=== PATIENT | male | born 1950 | race Caucasian/White ===

== ENCOUNTER 2016-08-25 16:42 | Outpatient (CLI) | payer BC ==
[~2016-08-25] VITALS: Ht 180.3 cm; Wt 79.5 kg
[~2016-08-25 16:42] MED LIST: ASPIRIN 32325 MG/TAB PO; CRESTOR 10MG10 MG PO
[2016-08-25 17:10] VITALS: BP 154/74; PULSE 59; TEMP 98
[2016-08-26] MEDS ORDERED: TYLENOL 325MG325 MG PO (10:34)
[2016-08-26] MEDS ORDERED: THE MEDICINE S200 M2 PO (10:34)
[2016-08-26] MEDS ORDERED: CENTRUM MEN'S PO (10:35)
[2016-08-26] MEDS ORDERED: SEA OMEGA 30 121 SGL PO (10:35)
[2016-08-26] MEDS ORDERED: ZOSYN 4 GM-0.51 PD1 IV (10:36)
[2016-08-26] MEDS ORDERED: VITAMIN B COMPL1 SGL PO (10:37)
[2016-08-26] MEDS ORDERED: SENOKOT S 50 MG1 TAB PO (10:37)
== END 2016-08-25 18:00 | disposition home or self-care (01) ==
LOC: EUO 16:42
DX: M86.60 Other chronic osteomyelitis, unspecified site (principal); Z45.2 Encounter for adjustment and management of vascular access device

== ENCOUNTER → 2017-10-05 | Outpatient (CLI) | payer OTHER ==
[~2017-10-05] MED LIST changes: +CENTRUM MEN'S PO; +SEA OMEGA 30 121 SGL PO; +SENOKOT S 50 MG1 TAB PO; +THE MEDICINE S200 M2 PO; +TYLENOL 325MG325 MG PO; +VITAMIN B COMPL1 SGL PO; +ZOSYN 4 GM-0.51 PD1 IV
== END ==
LOC: COL.RAD 13:04
DX: G31.89 Other specified degenerative diseases of nervous system (principal)
CPT/HCPCS: A9585

== ENCOUNTER → 2019-07-07 | Outpatient (CLI) | payer OTHER, MEDICARE | LOC: COL.RAD 10:03 | DX: S46.122A Laceration of muscle, fascia and tendon of long head of biceps, left arm, initial encounter (principal); M19.012 Primary osteoarthritis, left shoulder ==

== ENCOUNTER 2021-01-15 13:54 | Emergency (ER) | payer BC ==
[~2021-01-15] VITALS: Ht 177.8 cm; Wt 79.1 kg
[2021-01-15 14:11] VITALS: TEMP 99.6
[2021-01-15 14:47] LABS: ALANINE AMINOTRANSFERASE 24 U/L (4-49); ALBUMIN 4.3 gm/dL (3.5-5.0); ALKALINE PHOSPHATASE 72 U/L (50-136); ANION GAP 6 mmol/L (7-16); AST,SGOT 51 U/L (15-37); BLOOD UREA NITROGEN 24 mg/dL (9-20); CALCIUM 9.2 mg/dL (8.4-10.2); CARBON DIOXIDE 28 mmol/L (22-30); CHLORIDE 99 mmol/L (98-107); CREATININE, serum 1.22 (0.66-1.25); GLUCOSE 116 mg/dL (74-106); POTASSIUM 4.5 mmol/L (3.4-5.0); SODIUM 133 mmol/L (137-145); TOTAL PROTEIN 7.5 gm/dL (6.4-8.2)
[2021-01-15 15:00] LABS: TROPONIN-I < 0.012 ng/mL (0.000-0.035)
[2021-01-15 15:05] LABS: BASO % 0.7 % (0.0-2.0); HEMATOCRIT 39.9 % (42.0-52.0); LYMPH # 0.4 (1.2-3.4); LYMPH % 15.5 % (20.0-51.0); MEAN CELL VOLUME 90 fl (80.0-100.0); MEAN CORPUSCULAR HEMOGLOBIN 29 pg (27.0-31.0); MEAN CORPUSCULAR HGB CONC 33 g/dl (33.0-37.0); MEAN PLATELET VOLUME 9.6 fl (7.4-10.4); MONO # 0.4 (0.1-0.6); MONO % 12.4 % (1.7-9.3); PLATELET COUNT 137 K/mm3 (130-400); RED BLOOD COUNT 4.43 M/mm3 (4.20-5.60); REDCELL DISTRIBUTION WIDTH-CV 13.8 % (11.5-14.5)
[2021-01-15 17:55] VITALS: BP 121/71; PULSE 62
== END 2021-01-15 17:55 | disposition home or self-care (01) ==
LOC: COL.ER 13:54
PROVIDERS: Nurse Practitioner
DX: R07.89 Other chest pain (principal); E78.5 Hyperlipidemia, unspecified; I25.10 Atherosclerotic heart disease of native coronary artery without angina pectoris; I25.2 Old myocardial infarction; Z95.5 Presence of coronary angioplasty implant and graft; Z79.82 Long term (current) use of aspirin; Z79.899 Other long term (current) drug therapy

== ENCOUNTER → 2021-07-18 | Outpatient (CLI) | payer BC | LOC: COL.RAD 08:30 | DX: F03.90 Unspecified dementia, unspecified severity, without behavioral disturbance, psychotic disturbance, mood disturbance, and anxiety (principal) ==

== ENCOUNTER 2021-12-29 11:13 | Emergency (ER) | payer BC ==
[~2021-12-29] VITALS: Ht 177.8 cm; Wt 81.8 kg
[2021-12-29 11:27] VITALS: TEMP 98.1
[2021-12-29 12:33] LABS: BASO % 0.5 % (0.0-2.0); EOS # 0.1 K/mm3 (0.0-0.7); EOS % 1.4 % (0.0-4.0); GRAN # 4.3 K/mm3 (1.4-6.5); GRAN % 66.5 % (42.2-75.2); HEMATOCRIT 43.1 % (42.0-52.0); HEMOGLOBIN 14.4 g/dl (13.5-18.0); LYMPH # 1.4 K/mm3 (1.2-3.4); LYMPH % 22.3 % (20.0-51.0); MEAN CELL VOLUME 89 fl (80.0-100.0); MEAN CORPUSCULAR HEMOGLOBIN 30 pg (27-31); MEAN CORPUSCULAR HGB CONC 33 g/dl (33.0-37.0); MEAN PLATELET VOLUME 10.2 fl (7.4-10.4); MONO # 0.6 K/mm3 (0.1-0.6); MONO % 8.8 % (1.7-9.3); PLATELET COUNT 180 K/mm3 (130-400); RED BLOOD COUNT 4.85 M/mm3 (4.20-5.60); REDCELL DISTRIBUTION WIDTH-CV 13.4 % (11.5-14.5)
[2021-12-29 12:50] LABS: ALBUMIN 4.3 gm/dL (3.4-4.8); BILIRUBIN,TOTAL 1.2 mg/dL (0.2-1.2); CALCIUM 9.9 mg/dL (8.4-10.2); CREATININE, serum 1.13 mg/dL (0.72-1.25); POTASSIUM 4.8 mmol/L (3.5-4.5); TOTAL PROTEIN 7.9 gm/dL (6.2-8.1)
[2021-12-29 14:36] VITALS: BP 145/83; PULSE 67
== END 2021-12-29 14:37 | disposition home or self-care (01) ==
LOC: COL.ER 11:13
PROVIDERS: Emergency Medicine
DX: M54.2 Cervicalgia (principal); Z98.890 Other specified postprocedural states; Z28.310 Unvaccinated for COVID-19
CPT/HCPCS: Q9967